=== PATIENT | female | born 1955 | race Two or more races ===

== ENCOUNTER → 2024-09-23 | Outpatient (CLI) | payer OTHER, MEDICAID, SELFPAY ==
--- NOTE | 2024-09-23 | XR_ITS ---
Examination: Shoulder,right, 3 views Technique: Shoulder AP internal rotation, AP external rotation, Y view shoulder, 3 views Exam date and time :September 23, 2024 1150 hours Comparison July 23, 2024 INDICATIONS: Right shoulder pain beginning 2 years ago. FINDINGS: Mild narrowing glenohumeral joint Moderate osteoarthritis acromioclavicular joint Moderate osteopenia No fracture or location IMPRESSION: Mild narrowing glenohumeral joint Moderate osteoarthritis acromioclavicular joint
[2024-09-23 12:35] LABS: Collection Type, Urine Clean Catch; Squamous Epithelial Cell,Urine 0 /hpf (0-5); WBC,Urine 0 /hpf (0-5)
[2024-09-23 13:00] LABS: Basophils % (Auto) 1 % (0-2.5); Eosinophils # (Auto) 0.3 Thou/mm3 (0.0-0.5); Eosinophils % (Auto) 9 % (0-10); Hematocrit 41.4 % (36.0-46.0); Hemoglobin 13.7 g/dL (12.0-16.0); Immature Granulocytes % (Auto) 0 % (0-0); Immature Granulocytes Auto 0.01 Thou/mm3 (0.00-0.00); Lymphocytes % (Auto) 36 % (10-50); Mean Corpuscular HGB Conc 33.1 g/dl (31.0-37.0); Mean Corpuscular Volume 100 fL (80-100); Monocytes # (Auto) 0.3 Thou/mm3 (0.0-0.8); Monocytes % (Auto) 10 % (0-12); Neutrophils # (Auto) 1.2 Thou/mm3 (1.8-7.7); Neutrophils % (Auto) 44 % (37-80); Nucleated Red Blood Cell % 0 /100 WBC (0); Platelet Count 97 Thou/mm3 (140-440); RDW Standard Deviation 52.2 fL (36.4-46.3); Red Blood Count 4.15 Miln/mm3 (4.00-5.20)
[2024-09-23 13:03] LABS: Bilirubin,Urine Negative (Negative); Blood,Urine Negative (Negative); Clarity,Urine Clear (Clear/Hazy); Color,Urine Lt-Yellow (Lt Yel-Yel); Glucose, Urine Negative (Negative); Ketones,Urine Negative (Negative); Leukocyte Esterase,Urine Negative (Negative); Nitrite,Urine Negative (Negative); Protein,Urine Negative (Neg - Trace); RBC,Urine 1 /hpf (0-3); Specific Gravity,Urine 1.016 (1.001-1.035); Urobilinogen,Urine Negative mg/dL (0.0-1.0)
[2024-09-23 13:09] LABS: White Blood Count 2.8 Thou/mm3 (3.6-11.0)
[2024-09-23 13:14] LABS: Glucose Estimated Average 103 mg/dL (80-131); Hemoglobin A1C 5.2 % Hgb (4.8-6.0)
[2024-09-23 13:20] LABS: Alanine Aminotransferase 34 U/L (10-49); Albumin, Serum 4.3 gm/dL (3.4-4.8); Albumin/Globulin Ratio 1.7 (1.2-2.2); Alkaline Phosphatase 69 U/L (46-116); Anion Gap 7 (7-16); Aspartate Amino Transferase 39 U/L (0-34); BUN/Creatinine Ratio 24 Ratio (12-20); Bilirubin,Total 0.9 mg/dL (0.3-1.2); Blood Urea Nitrogen 17 mg/dL (9-23); Calcium 9.7 mg/dL (8.3-10.6); Calcium (Corrected) 9.7 mg/dL (8.5-10.1); Cardiac Risk Estimate 2.7 RATIO (3.7-5.6); Chloride 109 mMol/L (98-107); Cholesterol 163 mg/dL (132-200); Creatinine (Component) 0.7 mg/dL (0.6-1.3); Globulin 2.6 gm/dL (2.3-3.5); Glucose 125 mg/dL (74-106); HDL Cholesterol 60 mg/dL (40-60); LDL Cholesterol,Calculated 83 mg/dL (0-130); Osmolality,Calculated 285 (275-295); Sodium 142 mMol/L (136-145); Thyroid Stimulating Hormone 3.25 uIU/mL (0.55-4.78); Total Protein 6.9 gm/dL (5.7-8.2); Triglycerides 100 mg/dL (30-150); Vitamin D 25 Hydroxy Total 33.8 ng/mL (7.3-40.2); eGFR > 60 See Note
[2024-09-23 13:33] LABS: Creatinine MALB Rnd Ur 74 mg/dL (30-125); Microalbumin, Random Urine < 3 mg/L (0-300)
== END | disposition home or self-care (01) ==
LOC: CDIM 11:26 → COPL 12:07
PROVIDERS: PCP Family Medicine; Referring Provider Family Medicine; Visit Provider Radiology Diagnostic Radiology
DX: M25.811 Other specified joint disorders, right shoulder (principal); M19.011 Primary osteoarthritis, right shoulder; Z00.00 Encounter for general adult medical examination without abnormal findings; Z13.0 Encounter for screening for diseases of the blood and blood-forming organs and certain disorders involving the immune mechanism; Z13.29 Encounter for screening for other suspected endocrine disorder; Z13.21 Encounter for screening for nutritional disorder; Z13.220 Encounter for screening for lipoid disorders
CPT/HCPCS: 36415; 73030; 80053; 80061; 81001; 82043; 82306; 82570; 83036; 84443; 85025; 87086

== ENCOUNTER 2025-07-24 19:12 | Emergency (ER) | payer MEDICARE, MEDICAID, SELFPAY ==
[2025-07-24 19:35] VITALS: BP 121/84; PULSE 112; RESP 18; TEMP 36.9; O2SAT 96
--- NOTE | 2025-07-24 19:39 | XR_ITS ---
Examination: CT abdomen and pelvis without contrast. Coronal 3-D reconstructions. Sagittal 2-D reconstructions. Date and time of exam: July 24, 2025, 1949 hours INDICATIONS: Mid abdominal pain beginning 1 week ago CTDI: vol (mGy): 8.89 DLP: (mGycm): 461 Technique: Axial images of the abdomen have been obtained, 3 mm slice thickness Intravenous contrast material has not been administered. Low dose protocols were performed. One or more of the following dose reduction techniques were used; automated exposure control, adjustment of the mA and/or KV according to patient size, use of iterative reconstruction technique. Findings: Liver is irregular in contour, no focal liver lesions Absent gallbladder Mild splenomegaly No pancreatic or adrenal mass Tiny 1 to 3 mm bilateral nonobstructing renal calculi, hydronephrosis or ureteral calculi Normal appendix 3.3 cm fat-containing umbilical hernia No bowel obstruction Urinary bladder intact No pelvic mass Grade 1 spondylolisthesis L5 on S1 with advanced degenerative disc disease at this level IMPRESSION: Cirrhosis versus primary pelvis artery disease Mild splenomegaly Tiny bilateral nonobstructing renal calculi Normal appendix 3.3 cm fat-containing umbilical hernia
--- NOTE | 2025-07-24 19:39 | PD.EDRME ---
Rapid Medical Screening Exam E Arrival date/time: 07/24/25 19:12 This is a case of 70-year-old female who came into the emergency room due to abdominal pain nausea vomiting for 1 week worsening of the symptoms this patient decided to sought consult here in the emergency room Chief Complaint: Abdominal Pain Time Seen by Provider: 07/24/25 19:15 Vital signs: Vital Signs Temperature 98.5 F 07/24/25 19:35 Pulse Rate 112 H 07/24/25 19:35 Respiratory Rate 18 07/24/25 19:35 Blood Pressure 121/84 07/24/25 19:35 Pulse Oximetry (%) 96 07/24/25 19:35 Oxygen Delivery Method Room Air 07/24/25 19:35 Exam: Abdominal tenderness on the periumbilical area no guarding no rebound no rigidity Clinical Impression: Abdominal pain
[2025-07-24 20:04] LABS: Basophils # (Auto) 0.0 Thou/mm3 (0.0-0.2); Basophils % (Auto) 1 % (0-2.5); Eosinophils # (Auto) 0.2 Thou/mm3 (0.0-0.5); Eosinophils % (Auto) 2 % (0-10); Hematocrit 41.5 % (36.0-46.0); Hemoglobin 14.4 g/dL (12.0-16.0); Immature Granulocytes Auto 0.01 Thou/mm3 (0.00-0.00); Lymphocytes # (Auto) 1.3 Thou/mm3 (1.0-4.8); Lymphocytes % (Auto) 18 % (10-50); Mean Corpuscular HGB Conc 34.7 g/dl (31.0-37.0); Mean Corpuscular Hemoglobin 33.6 pg (25.0-35.0); Mean Corpuscular Volume 97 fL (80-100); Monocytes # (Auto) 0.6 Thou/mm3 (0.0-0.8); Monocytes % (Auto) 8 % (0-12); Neutrophils # (Auto) 4.9 Thou/mm3 (1.8-7.7); Neutrophils % (Auto) 71 % (37-80); Nucleated Red Blood Cell # 0.00 Thou/mm3 (0.00-0.00); Nucleated Red Blood Cell % 0 /100 WBC (0); Platelet Count 126 Thou/mm3 (140-440); RDW Standard Deviation 49.8 fL (36.4-46.3); Red Blood Count 4.29 Miln/mm3 (4.00-5.20); White Blood Count 7.0 Thou/mm3 (3.6-11.0)
[2025-07-24 20:32] LABS: Alanine Aminotransferase 43 U/L (10-49); Albumin, Serum 4.2 gm/dL (3.4-4.8); Albumin/Globulin Ratio 1.4 (1.2-2.2); Alkaline Phosphatase 69 U/L (46-116); Anion Gap 11 (7-16); Aspartate Amino Transferase 48 U/L (0-34); BUN/Creatinine Ratio 13 Ratio (12-20); Bilirubin,Total 1.5 mg/dL (0.3-1.2); Blood Urea Nitrogen 12 mg/dL (9-23); Calcium 9.5 mg/dL (8.3-10.6); Calcium (Corrected) 9.5 mg/dL (8.5-10.1); Carbon Dioxide 22.7 mMol/L (20.0-31.0); Chloride 107 mMol/L (98-107); Creatinine (Component) 0.9 mg/dL (0.6-1.3); Globulin 3.0 gm/dL (2.3-3.5); Glucose 141 mg/dL (74-106); Osmolality,Calculated 282 (275-295); Potassium 3.7 mMol/L (3.4-5.1); Sodium 141 mMol/L (136-145); Total Protein 7.2 gm/dL (5.7-8.2); eGFR > 60 See Note
[2025-07-24 20:43] LABS: Lipase 114 U/L (12-53)
[2025-07-24 20:56] LABS: Collection Type, Urine Clean Catch
[2025-07-24 21:19] LABS: Bilirubin,Urine Negative (Negative); Blood,Urine Negative (Negative); Clarity,Urine Clear (Clear/Hazy); Color,Urine Yellow (Lt Yel-Yel); Glucose, Urine Negative (Negative); Ketones,Urine Negative (Negative); Leukocyte Esterase,Urine Positive (Negative); Nitrite,Urine Negative (Negative); PH,Urine 6.0 (5.0-7.0); Protein,Urine Trace (Neg - Trace); RBC,Urine 10 /hpf (0-3); Specific Gravity,Urine 1.029 (1.001-1.035); Squamous Epithelial Cell,Urine 9 /hpf (0-5); Urobilinogen,Urine Negative mg/dL (0.0-1.0); WBC,Urine 10 /hpf (0-5)
--- NOTE | 2025-07-24 21:20 | PD.EDADULT ---
ED General RME/HPI General Chief complaint: Abdominal Pain Stated complaint: UPPER ABD PAIN WITH N/V/D Time Seen by Provider: 07/24/25 19:15 Arrival date/time: 07/24/25 19:12 CC: Nausea vomiting diarrhea epigastric pain HPI ongoing for the past 4 days. Patient's last vomitus was 3 hours ago patient denies diarrhea in the last 6 hours. Patient is awake alert oriented nontoxic-appearing not in any acute distress. Patient admits that she is steadily and consistently eats spicy foods. Patient denies chest pain shortness of breath difficulty breathing or dizziness. RME / HPI RME / HPI narrative: 07/24/25 19:12 This is a case of 70-year-old female who came into the emergency room due to abdominal pain nausea vomiting for 1 week worsening of the symptoms this patient decided to sought consult here in the emergency room Exam: Abdominal tenderness on the periumbilical area no guarding no rebound no rigidity Impression: Abdominal pain Related Data Home Medications ?Medication ?Instructions ?Recorded ?Confirmed atenolol 25 mg tablet (Tenormin) 25 mg PO QAM #0 tabs 12/20/14 Previous Rx's ?Medication ?Instructions ?Recorded Hydrocodone/Acetaminophen * (NORCO 1 tab PO Q6H PRN PAIN #14 tabs 12/29/16 5/325 *) acetaminophen 500 mg capsule 1,000 mg (2 x 500 mg) PO Q8HR PRN 01/24/21 pain #60 caps ibuprofen 800 mg tablet 800 mg PO TID PRN pain #30 tabs 01/24/21 ondansetron 4 mg disintegrating 4 mg PO Q8H #14 tabs 07/24/25 tablet pantoprazole 20 mg tablet,delayed 20 mg PO QDAY #30 tabs 07/24/25 release (Protonix) Allergies Allergy/AdvReac Type Severity Reaction Status Date / Time No Known Allergies Allergy Verified 07/24/25 19:13 Review of Systems Review of Systems Narrative Review of Systems: GEN: No fever, no chills, no weight loss EYES: No discharge, no visual changes, no pain HEENT: No ear pain, no congestion, no sore throat PULM: No shortness of breath, no cough, no congestion CV: No chest pain, no dyspnea on exertion, no palpitations GI: No nausea, no vomiting, no diarrhea, + pain, no constipation : No frequency, no urgency, no dysuria MUSC/SKEL: No joint pain, no back pain SKIN: No rash PSYCH: No hallucinations, no depression HEME/LYMPH: No easy bleeding or bruising tendencies NEURO: No weakness, no headache Past Medical History Social History SMOKING STATUS: Never smoker ED Exam Narrative Physical exam: [General: Obese not in acute distress Head normocephalic HEENT: Eyes pupils are PERRLA EOMs are intact mouth pink moist membranes uvula is midline swallow symmetrical phonation is normal all other subsystems of HEENT are within acceptable limits Neck is supple nontender Chest equal chest rise nontender to palpation Respiratory: Clear to auscultation no wheezes crackles or rubs CV: Rate rhythm is regular no murmurs rubs or clicks Abdomen: Mild epigastric pain with palpation no left upper or right upper quadrant pain with palpation no reflexive guarding no rebound tenderness. No lower abdominal pain with palpation. Back: No CVA tenderness no spinous process tenderness from cervical spine thoracic and lumbar spine Skin: Intact no petechiae rash induration ulceration or crepitus Extremities: Moving all extremity against resistance cap refill less than 2 seconds neurosensory intact Neuro: Awake alert oriented x3 Glascow coma 15 no focal deficits] Course Course Course Narrative: Patient had an unremarkable exam other than mild epigastric pain I suspect this is mostly reflux however lipase is mildly elevated and CT shows a mild splenomegaly I do not know if this is an early pancreatitis or not. Patient will be discharged home with instructions for bland diet but on famotidine and nausea medicine however if it is advised if there is worsening of symptoms she is to return for possibility of pancreatitis Quality Measures none Orders Category Date Time Status CT abdomen pelvis wo con Stat Exams 07/24/25 19:39 Completed CBC Stat Lab 07/24/25 19:57 Completed Comprehensive Metabolic Panel Stat Lab 07/24/25 19:57 Completed Lipase Stat Lab 07/24/25 19:57 Completed Urinalysis Stat Lab 07/24/25 20:44 Received Vital Signs Vital signs: Vital Signs Temperature 98.5 F 07/24/25 19:35 Pulse Rate 112 H 07/24/25 19:35 Respiratory Rate 18 07/24/25 19:35 Blood Pressure 121/84 07/24/25 19:35 Pulse Oximetry (%) 96 07/24/25 19:35 Oxygen Delivery Method Room Air 07/24/25 19:35 Discharge Plan Plan Patient Disposition: HOME (Self Care) Patient condition on transfer: Stable Prescriptions/Referrals Prescriptions/Med Rec: New pantoprazole [Protonix] 20 mg tablet,delayed release (DR/EC) 20 mg PO QDAY Qty: 30 1RF ondansetron 4 mg tablet,disintegrating 4 mg PO Q8H Qty: 14 0RF No Action atenolol [Tenormin] 25 MG tablet 25 mg PO QAM Qty: 0 Hydrocodone/Acetaminophen * (NORCO 5/325 *) 1 TAB tablet 1 tab PO Q6H PRN (Reason: PAIN) Qty: 14 0RF ibuprofen 800 mg tablet 800 mg PO TID PRN (Reason: pain) Qty: 30 0RF acetaminophen 500 mg capsule 1,000 mg PO Q8HR PRN (Reason: pain) Qty: 60 0RF Referrals: Karlo (PCP),MD Bhanu [Primary Care Provider, Family Practice] - In 1 week Problem List Clinical Impression: Epigastric pain Patient/Caregiver Discharge Instructions Education Materials: ED Epigastric Pain (Uncertain Cause), ED Diet, [place] (Adult) Additional Instructions: Avoid eating any food or drink for 2 hours before you go to bed take the medications as prescribed, avoid all greasy spicy and fatty foods stick to the bland diet for the next 10 days follow-up with your primary care doctor. If there is worsening of symptoms in spite of these interventions return the emergency room immediately for further evaluation. Print Language: Azerbaijani Stand Alone Forms: Radha Award Info., Patient Portal Info Letter, Work/School Release PA/DEVELOPMENTAL BEHAVIORAL PHYSICIAN Supervising Physician PA/DEVELOPMENTAL BEHAVIORAL PHYSICIAN Supervising Physician: Angelito Redd ENP [facility] Clinical Information Provided by: patient Medical Records reviewed [facility] Meds/Rx considered, not ordered None Labs/Rad/Tests considered, not ordered None Chronic Illness/Social Conditions Explain: Hypertension EKG EKG not done Labs Labs: interpreted by dc Lab(s) Interpretation(s): CBC shows no acute leukocytosis anemia but there is mild thrombocytopenia CMP shows no significant electrolyte imbalances other than a glucose of 141, no renal impairment no transaminitis T. bili at 1.5 note: Review of previous labs show this is consistent with past lab draws. Lipase at 114 At the time of this dictation urine is pending. Imaging Imaging interpretation: interpreted by dc Imaging Interpretation(s): Mild splenomegaly no other acute finding Medication Administration(s) none Diagnosis Differential Diagnosis ED Complaint MDM: Acid reflux cholelithiasis cholecystitis pancreatitis
[2025-07-24 21:36] VITALS: BP 118/79; PULSE 98; RESP 17; TEMP 37.4; O2SAT 97
== END 2025-07-24 21:42 | disposition home or self-care (01) ==
PROVIDERS: Nurse Practitioner Family; Emergency Provider Emergency Medicine; PCP Family Medicine
DX: R10.13 Epigastric pain (principal)
CPT/HCPCS: 36415; 74176; 80053; 81001; 83690; 85025; 99281